=== PATIENT | female | born 1955 | race Caucasian/White ===

== ENCOUNTER 2017-12-03 11:05 | Day surgery (SDC) | payer MEDICARE, MEDICAID ==
--- NOTE | 2017-12-03 11:50 | PCM.PREANE ---
Preanesthetic Assessment - Anesthesia/Transfusion/Family Hx Anesthesia History: Prior Anesthesia Reaction Other Type of Anesthesia Reaction Comment: Denies any known problem in past Family History of Anesthesia Reaction: No Transfusion History: Prior Transfusion Without Reaction Intubation History: Unknown - Review of Systems General: No Symptoms Pulmonary: No Symptoms Cardiovascular: No Symptoms Gastrointestinal: No Symptoms Neurological: No Symptoms Other: Reports: None - Physical Assessment Height: 1.68 m Weight: 50.349 kg ASA Class: 3 Mental Status: Alert & Oriented x3 Airway Class: Mallampati = 2 Dentition: Reports: Normal Dentition Thyro-Mental Finger Breadths: 3 Mouth Opening Finger Breadths: 2 ROM/Head Extension: Limited/Partial Lungs: Clear to Auscultation, Normal Respiratory Effort Cardiovascular: Regular Rate, Regular Rhythm - Allergies Allergies/Adverse Reactions: Allergies Allergy/AdvReac Type Severity Reaction Status Date / Time Sulfa (Sulfonamide Allergy Nausea and Verified 12/01/17 10:42 Antibiotics) Vomiting - Blood Blood Available: No - Anesthesia Plan Pre-Op Medication Ordered: None - Acknowledgements Anesthesia Type Planned: MAC Pt an Appropriate Candidate for the Planned Anesthesia: Yes Alternatives and Risks of Anesthesia Discussed w Pt/Guardian: Yes Pt/Guardian Understands and Agrees with Anesthesia Plan: Yes PreAnesthesia Questionnaire HEENT History: Reports: Hard of Hearing, Other (See Below) Other HEENT History: wears glasses, has partial denture but doesn't wear it, has hearing aide but doesn't wear it. Gastrointestinal History: Reports: GERD, Hemorrhoids Other Gastrointestinal History: Heartburn/Dysphagia Musculoskeletal History: Reports: Other (See Below) Other Musculoskeletal History: has sciatica Psychiatric History: Reports: Depression Other Psychiatric History: History of Alcohol and Drug Addiction (history of injectible drug use) Endocrine/Metabolic History: Reports: Hypothyroidism Hematologic History: Reports: Anemia, Blood Transfusion(s) Other Hematologic History: states had 4 units of blood in [place]- unknown reason - Past Surgical History GI Surgical History: Reports: Other (See Below) Other GI Surgeries/Procedures: hx of hemorrhoidectomy Female Surgical History: Reports: Hysterectomy - SUBSTANCE USE Smoking Status *Q: Former Smoker (quit 10/31) Tobacco Use Within Last Twelve Months: No Recreational Drug Use History: No - HOME MEDS Home Medications: Home Meds Cholecalciferol (Vitamin D3) [Vitamin D3] 5,000 unit PO DAILY 12/01/17 [History] Cyclobenzaprine [Flexeril] 10 mg PO TID 12/01/17 [History] DULoxetine [Cymbalta] 20 mg PO DAILY 12/01/17 [History] Donepezil [Aricept] 5 mg PO BEDTIME 12/01/17 [History] Esomeprazole [NexIUM] 40 mg PO DAILY 12/01/17 [History] Hydrocodone/Acetaminophen [Hydrocodon-Acetaminophen 5-325] 1 tab PO TID PRN [History] Levothyroxine 75 mg PO QAM 12/01/17 [History] Linaclotide [Linzess] 145 mcg PO DAILY 12/01/17 [History] Naproxen 500 mg PO BID 12/01/17 [History] Oxybutynin Chloride 5 mg PO DAILY 12/01/17 [History]
[2017-12-03] MEDS ORDERED: fentaNYL 100 MCG/2 ML SDV ONE (12:01)
[2017-12-03] MEDS ORDERED: Midazolam 1 MG/ML 2 ML SDV ONE (12:02)
--- NOTE | 2017-12-03 13:47 | PCM48HPAN ---
Post Anesthesia Note - EVALUATION WITHIN 48HRS OF ANESTHETIC Vital Signs in Normal Range: Yes Patient Participated in Evaluation: Yes Respiratory Function Stable: Yes Airway Patent: Yes Cardiovascular Function Stable: Yes Hydration Status Stable: Yes Pain Control Satisfactory: Yes Nausea and Vomiting Control Satisfactory: Yes Mental Status Recovered: Yes Resp Rate: 12 - COMMENTS/OBSERVATIONS Free Text/Narrative:: No anesthesia problems. Patient skipped recovery room postoperative care.
[2017-12-03 14:19] VITALS: BP 120/74
== END 2017-12-03 15:15 ==
LOC: MW.SDS 11:05 → EDSTATUS 13:00 → MW.SDS 15:15
PROVIDERS: ATTEND Anesthesiology
DX: M54.5 Low back pain (principal); M54.10 Radiculopathy, site unspecified; E03.9 Hypothyroidism, unspecified; E55.9 Vitamin D deficiency, unspecified; I73.00 Raynaud's syndrome without gangrene; K59.00 Constipation, unspecified; Z79.899 Other long term (current) drug therapy; Z88.2 Allergy status to sulfonamides; Z87.891 Personal history of nicotine dependence
CPT/HCPCS: J2250; J3010; 01922